=== PATIENT | male | born 1970 | race Caucasian/White ===

== ENCOUNTER 2017-12-17 05:41 | Day surgery (SDC) | payer BC, SELFPAY ==
[2017-12-17] VITALS (7 sets, daily range): BP systolic 113–126; BP diastolic 74–92; PULSE 74–88; RESP 16–18; TEMP 36.1–36.3; O2SAT 96–99; BMI 27.3
--- NOTE | 2017-12-17 06:33 | PCM.HP.STD ---
History of Present Illness Date of Admission: 12/17/17 The patient is a 47 year old M who had a diverticular stricture of the sigmoid colon prohibiting colonoscopic inspection. He has undergone laparoscopic left colectomy. That is progressing well. He presents back now for the endoscopic colonoscopy that he never had completed preoperatively. Past Medical History Allergies No Known Allergies Allergy (Verified 12/14/17 09:40) Home Medications: Ambulatory Orders Medication Instructions Recorded NK [NK] 12/17/17 Surgical History: no surgical history, - - Laparoscopic sigmoid left colectomy for diverticular stricture and recurrent diverticulitis Psychiatric History: No pertinent psych hx Smoking Status: Never smoker - *Family History Paternal History Items: Diabetes Review of Systems Constitutional: Denies: Weight Change Eyes: Denies: Blurred vision, Vision Change HEENT: Denies: Ear Pain, Eye Pain Cardiovascular: Denies: Chest Pain, Claudication Respiratory: Denies: Cough, Shortness of Breath Gastrointestinal: Denies: Hematemesis, Hematochezia Genitourinary: Denies: Dysuria, Hematuria Musculoskeletal: Denies: Leg Pain Skin: Denies: Jaundice Neurological: Denies: Confusion Psychiatric: Denies: Depression Endocrine: Denies: Change in Body Habitus Hematologic/ Lymphatic: Denies: Easy Bleeding VTE Information - Inpt Only VTE Present on Admission: No - Physical Exam General: Alert, Oriented x3 HEENT: PERRLA, EOMI Oral: Moist Mucosa Neck: Supple, No JVD Lungs: Clear to auscultation Cardiovascular: Regular rate Abdomen: Bowel Sounds Present, Soft, Non Tender, - - Well-healed suprapubic transverse incision Extremities: No clubbing, No cyanosis, No edema Skin: No breakdown Musculoskeletal: No Tenderness to Palpation of Joints or Extremities Lymphatic: No Cervical, Supraclavicular, or Inguinal Adenopathy Neurological: Neuro grossly intact Psych/Mental Status: Appropriate Vital Signs Temp Pulse Resp BP Pulse Ox 97.0 F L 86 16 119/88 H 99 12/17/17 06:06 12/17/17 06:06 12/17/17 06:06 12/17/17 06:06 12/17/17 06:06 Oxygen Delivery Method Room Air Weight: 202 lb Body Mass Index (BMI) 27.3 Assessment/Plan Proceed with colonoscopy to complete the colon evaluation status post resection for severe recurrent diverticulitis with abscess and stricture. Preoperative colonoscopy was not able to be achieved secondary to recurrent perforation and abscess. He is aware the technique, benefits, risks and alternatives. We will proceed as noted. Avelino Lagos M.D., F.A.C.S.
--- NOTE | 2017-12-17 06:50 | PCM.OPRPT ---
Problem List (1) Diverticulitis large intestine Status: Acute Qualifiers: Diverticulitis bleeding: without bleeding (2) Diverticulitis of large intestine with abscess Status: Acute Qualifiers: Diverticulitis bleeding: without bleeding Qualified Code(s): K57.20 - Diverticulitis of large intestine with perforation and abscess without bleeding Report of Operation Date of Procedure: 12/17/17 Pre-Operative Diagnosis: History of recurrent diverticulitis with perforation and abscess Post-Operative Diagnosis: Same Surgery/Procedure Performed:: Colonoscopy Description of Surgical Findings:: 47-year-old gentleman. He has had multiple bouts of recurrent diverticulitis. He had a localized perforation. An attempt was made to perform a pre-operative colonoscopy. The patient then re-perforated by taking the bowel prep. He subsequently underwent laparoscopic sigmoid colectomy. As he had never had a preoperative evaluation of his colon he presents now to complete that. He has no current complaints. He is doing well status post his colectomy. His left lower quadrant pain and recurrent abscess condition has resolved. Timeout and informed consent was obtained. 47-year-old gent was taken to the ostomy suite. He was placed in a left lateral decubitus position. Throughout the procedure 100 mg Demerol and 3.5 mg of Versed were given as intravenous sedation. Digital rectal exam performed. Moderate internal/external hemorrhoids. No mass lesions. 2+ with prostate. Flex will colonoscope inserted in the rectum advanced to 7 cm where the stapled end-to-end anastomosis was identified and was widely patent. There was minimal diverticulosis at that area. The scope was then readily advanced through the descending colon transverse colon and ascending colon. The cecum ileocecal valve area was nicely achieved. Bowel prep was adequate. There is still some liquid stool staining some of the surfaces but that could be irrigated and aspirated. The scope was carefully withdrawn from the cecum ascending colon transverse colon descending colon. Minimal residual diverticulosis of the very distal descending/sigmoid colon at the anastomosis was identified. The surgical anastomosis was widely patent and intact. The scope was retroflexed within the rectum and the internal hemorrhoidal changes noted but no evidence of active bleeding. Impression Widely patent colorectal anastomosis at approximately 10 cm. Minimal residual diverticulosis at that site. Otherwise normal colon. No history of previous screening colonoscopy. Next screening colonoscopy recommended in 10 years. Cc: Dr. Ian Lagos M.D., F.A.C.S. Medications were given at 0638. Scope inserted 0641. Cecum was reached at 0642.58. Procedure completed 0647.58 Type of Anesthesia:: IV Sedation
== END 2017-12-17 07:25 | disposition home or self-care (01) ==
LOC: EN 05:42 → AC 05:44
PROVIDERS: Family Provider Family Medicine; PCP Family Medicine; Visit Provider Surgery
PROC: 0DJD8ZZ Inspection of Lower Intestinal Tract, Via Natural or Artificial Opening Endoscopic (ICD-10-PCS; CPT 45378; principal; 2017-12-17 06:25)
DX: K57.30 Diverticulosis of large intestine without perforation or abscess without bleeding (principal); K64.8 Other hemorrhoids; K64.4 Residual hemorrhoidal skin tags; Z90.49 Acquired absence of other specified parts of digestive tract
CPT/HCPCS: 45378; J7120

== ENCOUNTER → 2019-03-22 | Outpatient (CLI) | payer BC, SELFPAY ==
[2019-03-22 12:57] VITALS: BMI 27.3
--- NOTE | 2019-03-22 13:00 | MASS_PTH ---
PATIENT: HARDIK DELGADO LOC: [facility] U#:[id number] AGE/SX: 48/M ROOM: RE03/22/[address]: Dr. Avelino Lagos MD : 1970 BED: DIS: 03/22/2019 SPEC #: [id number] RECD: 03/22/19 16:08 STATUS: JOCELIN BEV #: [id number] SHADE: 03/22/19 13:[address]: Avelino Lagos DEPT: SURGICAL PATHOLOGY RECD BY: Harley Villavicencio ENTERED: 03/23/19 08:08 SP TYPE: Mass OTHR DR: Dr. Claus Sosa, DO Tissues: Neck, NOS Procedures: Surgery Specimen Level IV HEADER OPERATION: Excision left neck mass PRE-OP DIAGNOSIS: Left neck mass TISSUE SUBMITTED: Left neck tissue MICROSCOPIC DIAGNOSIS Left neck mass, excision: Epidermal inclusion cyst with remote rupture, multinucleated histiocytic reaction and granulation tissue formation. CE:kalpana 03/24/19 MICROSCOPIC DESCRIPTION Slides are reviewed. GROSS DESCRIPTION Received in fixative is one container labeled with the patient's name and designated left neck mass. The specimen consists of an ellipse of light simpson skin with attached simpson tissue. The skin ellipse measures 2.2 x 1 cm and a depth of excision measuring 1 cm. The specimen is inked and serially sectioned. No distinct mass lesion is identified. The specimen is totally submitted in two cassettes. / AM:kalpana 03/23/19 TC:3 CPT: 06669
== END | disposition home or self-care (01) ==
LOC: LABSPEC 16:13
PROVIDERS: Family Provider Family Medicine; PCP Family Medicine; Referring Provider Surgery; Visit Provider Surgery
DX: L72.0 Epidermal cyst (principal)
CPT/HCPCS: 88305

== ENCOUNTER → 2024-01-31 | Outpatient (CLI) | payer BC, SELFPAY ==
[2024-01-31 12:44] LABS: Absolute Lymphocyte Count 1.82 X10^3/uL (0.83-4.51); Absolute Neutrophil Count 4.3 X10^3/uL (2.0-7.7); Basophil# 0.04 X10^3/uL; Basophil% 0.6 % (0-1); Eosinophil# 0.11 X10^3/uL; Eosinophils% 1.6 % (0-5); Hematocrit 49.7 % (40-54); Hemoglobin 16.2 g/dL (13.0-16.5); Lymphocyte # 1.82 X10^3/ul (0.83-4.51); Lymphocyte % 26.7 % (19-41); Mean Corp Hgb Conc 32.6 g/dL (32-36); Mean Corpuscular Hgb 27.7 pg (27.0-32.0); Mean Platelet Vol. 11.7 fl (6.2-12.0); Monocyte% 7.3 % (0-10); NRBC Flagged by Analyzer 0 % (0-5); Neutrophil # 4.33 X10^3/uL (2.7-7.7); Neutrophil % 63.5 % (47-70); POSITIVE COUNT YES; RBC Distribution Width CV 14.4 % (11.6-14.6); Red Blood Count 5.85 M/mm3 (4.6-6.2); White Blood Count 6.8 K/mm3 (4.4-11.0)
[2024-01-31 13:06] LABS: Platelet Estimate ADEQUATE (ADEQ)
[2024-01-31 14:19] LABS: ALB/GLOB Ratio 1.1 RATIO (0.9-2.4); AST(SGOT) 23 U/L (15-37); Alanine Aminotransfer ALT/SGPT 31 U/L (16-61); Alkaline Phosphatase 66 U/L (45-117); Anion Gap 4 (5-15); BUN 16 mg/dL (7-18); BUN/Creat Ratio 14.8 RATIO (10-20); Calcium,Total 9.2 mg/dL (8.5-10.1); Chloride 107 mmol/L (98-107); Cholesterol 220 mg/dL (200); Creatinine, Serum 1.08 mg/dL (0.70-1.30); EST Glomerular Filtration Rate 76 mL/min (>60); Est Glom Filt Rate - Afr Amer 92 mL/min (>60); Globulin 3.6 g/dL (2.2-4.2); Glucose 82 mg/dL (74-106); High Density Lipoprotein 57 mg/dL; PSA,Total - Annual Screen 0.56 ng/mL (0.00-4.00); Potassium 4.1 mmol/L (3.5-5.1); Protein, Total 7.6 g/dL (6.4-8.2); Sodium Level 138 mmol/L (136-145); Triglycerides 73 mg/dL; Very Low Density Lipoprotein 15 mg/dL (5-40)
== END | disposition home or self-care (01) ==
LOC: MTLAB 09:52
PROVIDERS: PCP Family Medicine; Referring Provider Family Medicine; Visit Provider Family Medicine
DX: Z00.00 Encounter for general adult medical examination without abnormal findings (principal); Z12.5 Encounter for screening for malignant neoplasm of prostate
CPT/HCPCS: 36415; 80053; 80061; 84153; 85025; G0103

== ENCOUNTER → 2025-05-07 | Outpatient (CLI) | payer BC, SELFPAY ==
[2025-05-07 12:40] LABS: Absolute Lymphocyte Count 1.86 X10^3/uL (0.83-4.51); Absolute Neutrophil Count 4.1 X10^3/uL (2.0-7.7); Basophil# 0.03 X10^3/uL; Basophil% 0.4 % (0-1); Eosinophil# 0.16 X10^3/uL; Eosinophils% 2.4 % (0-5); Hematocrit 46.4 % (40-54); Lymphocyte # 1.86 X10^3/ul (0.83-4.51); Lymphocyte % 27.7 % (19-41); Mean Corp Hgb Conc 32.3 g/dL (32-36); Mean Corpuscular Hgb 28.1 pg (27.0-32.0); Mean Corpuscular Volume 86.9 fL (80-94); Mean Platelet Vol. 11.1 fl (6.2-12.0); Monocyte# 0.55 X10^3/uL; Monocyte% 8.2 % (0-10); NRBC Flagged by Analyzer 0 % (0-5); Neutrophil # 4.11 X10^3/uL (2.7-7.7); Neutrophil % 61.2 % (47-70); Platelet Count 258 K/mm3 (150-450); RBC Distribution Width SD 44.8 fl (35.1-43.9); Red Blood Count 5.34 M/mm3 (4.6-6.2); White Blood Count 6.7 K/mm3 (4.4-11.0)
[2025-05-07 13:08] LABS: ALB/GLOB Ratio 1.6 RATIO (0.9-2.4); AST(SGOT) 22 U/L (<=37); Alanine Aminotransfer ALT/SGPT 20 U/L (<=46); Albumin, Serum 4.4 g/dL (3.5-5.0); Alkaline Phosphatase 69 U/L (40-129); Anion Gap 10 (5-15); BUN 17 mg/dL (4-19); Calcium,Total 9.5 mg/dL (7.6-11.0); Carbon Dioxide 25.4 mmol/L (21.0-32.0); Chloride 104 mmol/L (98-108); Cholesterol 235 mg/dL (<=200); Creatinine, Serum 1.03 mg/dL (0.70-1.20); EST Glomerular Filtration Rate 86 (>60); Globulin 2.8 g/dL (2.2-4.2); Glucose 95 mg/dL (70-99); High Density Lipoprotein 60 mg/dL; Low Density Lipoprotein Calc. 161 mg/dL; Potassium 4.8 mmol/L (3.3-5.1); Protein, Total 7.1 g/dL (5.9-8.4); Sodium Level 140 mmol/L (133-145); Total Bilirubin 0.72 mg/dL (0.00-1.30); Triglycerides 72 mg/dL; Very Low Density Lipoprotein 14 mg/dL (5-40); cholesterol:hdl ratio screen 3.94
[2025-05-07 13:10] LABS: PSA,Total - Annual Screen 0.53 ng/mL (0.02-4.00)
== END | disposition home or self-care (01) ==
LOC: BFHLAB 09:34
PROVIDERS: PCP Family Medicine; Visit Provider Family Medicine
DX: Z00.00 Encounter for general adult medical examination without abnormal findings (principal); R53.83 Other fatigue; Z12.5 Encounter for screening for malignant neoplasm of prostate
CPT/HCPCS: 36415; 80053; 80061; 84153; 84403; 85025; G0103